=== PATIENT | female | born 1980 | race Caucasian/White ===

== ENCOUNTER 2016-08-24 00:08 | Inpatient (IN) ==
[~2016-08-24 00:08] MED LIST: LR 1,000 ML IV ONE
[2016-08-24] MEDS ORDERED: BENADRYL IV PRN (00:18)
[2016-08-24] MEDS ORDERED: PITOCIN 20 UNITS/LR 20 UNITS/1,000 ML IV.SOLN IV SCH (00:18)
[2016-08-24] MEDS ORDERED: MINERAL OIL PO PRN (00:18)
[2016-08-24] MEDS ORDERED: M-M-R II VACCINE SUBQ ONE (00:18)
[2016-08-24] MEDS ORDERED: PERI MEDS (DERMOPLAST/NUPERCAINAL/TUCKS) MISC PRN (00:18)
[2016-08-24] MEDS ORDERED: BENADRYL PO PRN (00:18)
[2016-08-24] MEDS ORDERED: NORCO-5 PO PRN (00:18)
[2016-08-24] MEDS ORDERED: CYTOTEC PO PRN (00:18)
[2016-08-24] MEDS ORDERED: BOOSTRIX VACCINE IM ONE (00:18)
[2016-08-24] MEDS ORDERED: XYLOCAINE-MPF 1% INJ PRN (00:18)
[2016-08-24] MEDS ORDERED: HYDROXYZINE PO PRN (00:18)
[2016-08-24] MEDS ORDERED: HYDROXYZINE IM PRN (00:18)
[2016-08-24] MEDS ORDERED: PITOCIN 30 UNITS/LR 30 UNITS/500 ML IV.SOLN IV ONE (00:18)
[2016-08-24] MEDS ORDERED: AMBIEN PO PRN (00:18)
[2016-08-24] MEDS ORDERED: PITOCIN IM PRN (00:18)
[2016-08-24 00:35] LABS: UR AMPHETAMINES QUAL NONE DETECTED (NONE DETECT); UR BARBITUATES QUAL NONE DETECTED (NONE DETECT); UR BENZODIAZEPIN QUAL PRESUMPTIVE POSITIVE (NONE DETECT); UR CANNABINOIDS QUAL NONE DETECTED (NONE DETECT); UR COCAINE QUAL NONE DETECTED (NONE DETECT); UR MDMA QUAL NONE DETECTED (NONE DETECT); UR METHADONE QUAL NONE DETECTED (NONE DETECT); UR METHAMPHETAMINE QUAL NONE DETECTED (NONE DETECT); UR OPIATES QUAL NONE DETECTED (NONE DETECT); UR OXYCODONE QUAL NONE DETECTED (NONE DETECT); UR PCP QUAL NONE DETECTED (NONE DETECT); UR TCA QUAL NONE DETECTED (NONE DETECT)
[2016-08-24] MEDS: NORCO-10 PO PRN ×2 (08:55→16:59)
[2016-08-24] MEDS ORDERED: MOTRIN PO PRN (11:56)
[2016-08-24 16:11] VITALS: BP 100/54
[2016-08-24] MEDS ORDERED: PERICOLACE PO SCH (21:00)
== END 2016-08-24 20:30 | disposition left against medical advice (07) ==
LOC: P.LD 00:08 → P.WC 16:02
PROVIDERS: ADMIT Obstetrics & Gynecology; ATTEND Obstetrics & Gynecology